=== PATIENT | female | born 2000 | race Caucasian/White ===

== ENCOUNTER 2019-11-15 04:40 | Inpatient (IN) | payer OTHER ==
[2019-11-15] MEDS ORDERED: CITRIC ACID/SODIUM CITRATE 30 ML UNIT-DOSE CUP PO ONE (05:45)
--- NOTE | 2019-11-15 05:49 | HP ---
Past Medical History - Primary Care Physician PCP:: Chas Enamorado - Admission Chief Complaint: 37,5 weeks, previous c/s , rom, request of repeat c/s History Source: Patient Limitations to Obtaining History: Language Barrier - Past Medical History ...: 2 ...Para: 1 ...Term: 1 - Past Surgical History Past Surgical History: Yes: Hx Myomectomy: No Hx Transabdominal Cerclage: No - Smoking History Have you smoked in the past 12 months: No - Alcohol/Substance Use Hx Alcohol Use: No History of Substance Use: reports: None - Social History History of Recent Travel: No Home Medications - Allergies Allergies/Adverse Reactions: Allergies Allergy/AdvReac Type Severity Reaction Status Date / Time shrimp Allergy Verified 11/06/19 06:47 Review of Systems - Review of Systems Constitutional: reports: No Symptoms Eyes: reports: No Symptoms HENT: reports: No Symptoms Neck: reports: No Symptoms Cardiovascular: reports: No Symptoms Respiratory: reports: No Symptoms Gastrointestinal: reports: No Symptoms Genitourinary: reports: No Symptoms Breasts: reports: No Symptoms Reported Musculoskeletal: reports: No Symptoms Integumentary: reports: No Symptoms Neurological: reports: No Symptoms Endocrine: reports: No Symptoms Hematology/Lymphatic: reports: No Symptoms Psychiatric: reports: No Symptoms Physical Exam - Maternity Constitutional: Yes: Well Nourished, No Distress, Calm Eyes: Yes: WNL, Conjunctiva Clear, EOM Intact HENT: Yes: WNL, Atraumatic, Normocephalic Neck: Yes: WNL, Supple, Trachea Midline Cardiovascular: Yes: WNL, Regular Rate and Rhythm Breast(s): Yes: WNL Hemorrhage Risk Assessment - Risk Factors Medium Risk Factors: Yes: Prior , uterine surgery,or multiple laparotomies Risk Score: 1 Risk Level: Medium Risk Problem List - Problems (1) with 37 weeks completed gestation Code(s): Z3A.37 - 37 WEEKS GESTATION OF (2) Previous section complicating Code(s): O34.219 - MATERNAL CARE FOR UNSP TYPE SCAR FROM PREVIOUS DEL (3) PROM (premature rupture of membranes) Code(s): O42.90 - SANIYA ROM, 7TH0 BETW RUPT & ONST LABR, UNSP WEEKS OF GEST Qualifiers: PROM onset of labor timing: onset of labor within 24 hours of rupture PROM gestational age: -third trimester Qualified Code(s): O42.013 - premature rupture of membranes, onset of labor within 24 hours of rupture, third trimester Assessment/Plan requesting repeat c/s, risks associated with repeat c/s vs has discussed with patient
[2019-11-15] MEDS ORDERED: ELECTROLYTE-148 SOLN 1,000 ML IV SCH ×2 (06:00→06:31)
[2019-11-15 06:08] VITALS: BMI 23.9
[2019-11-15 06:18] LABS: BASO % 0.2 % (0-2.0); EOS % 0.4 % (0-4.5); HEMATOCRIT 33.2 % (32.4-45.2); HEMOGLOBIN 10.8 GM/dL (10.7-15.3); LYMPH % 20.7 % (8-40); MCH 28.8 pg (25.7-33.7); MCHC 32.5 g/dl (32.0-36.0); MEAN CELL VOLUME 88.5 fl (80-96); MEAN PLT VOLUME 9.9 fl (7.5-11.1); MONO % 4.6 % (3.8-10.2); NEUT % 74.1 % (42.8-82.8); PLATELET COUNT 267 K/MM3 (134-434); RBC 3.76 M/mm3 (3.60-5.2); RDW 14.4 % (11.6-15.6); WHITE BLOOD COUNT 11.6 K/mm3 (4.0-10.0)
[2019-11-15 06:27] LABS: INR 0.92 (0.83-1.09); PROTHROMBIN TIME (PATIENT) 10.9 SEC (9.7-13.0)
[2019-11-15 06:29] LABS: ACTIVATED PTT 26.9 SECONDS (25.2-36.5)
[2019-11-15 06:40] LABS: ALBUMIN 2.8 g/dl (3.4-5.0); BILIRUBIN,TOTAL 0.2 mg/dL (0.2-1); BLOOD UREA NITROGEN 7.1 mg/dL (7-18); CALCIUM 9.1 mg/dL (8.5-10.1); CREATININE 0.4 mg/dL (0.55-1.3); TOT PROT 6.6 g/dl (6.4-8.2)
[2019-11-15] MEDS ORDERED: morphine SULFATE/PF 0.5 MG/ML (2cc Syringe - QUVA) ONE (06:49)
[2019-11-15] MEDS ORDERED: PROPOFOL 20 ML ONE (07:01)
[2019-11-15] MEDS ORDERED: SUCCINYLCHOLINE CHLORIDE 200 MG/10 ML SYRINGE ONE (07:01)
[2019-11-15] MEDS ORDERED: IBUPROFEN 800 MG/8 ML IJ IVPB PRN (08:15)
[2019-11-15] MEDS ORDERED: OXYTOCIN 20 UNITS in 0.9% NS 20 UNIT/1,000 ML INFUS.BAG IV SCH (08:15)
[2019-11-15] MEDS ORDERED: oxyCODONE HCL 5 MG TABLET PO PRN (08:15)
[2019-11-15] MEDS ORDERED: WITCH HAZEL 50% (TUCKS) 40 PAD/JAR PAD TP PRN (08:15)
[2019-11-15] MEDS ORDERED: diphenhydrAMINE HCL 25 MG CAPSULE (FP) PO PRN (08:15)
[2019-11-15] MEDS ORDERED: BENZOCAINE 20% 57 GM BOTTLE TP PRN (08:15)
[2019-11-15] MEDS ORDERED: METHYLERGONOVINE MALEATE 0.2 MG/1 ML AMP IM PRN (08:15)
[2019-11-15] MEDS ORDERED: BENZOCAINE 28 GM HEMORRHOIDAL OINTMENT RC PRN (08:15)
[2019-11-15] MEDS ORDERED: morphine SULFATE/PF 0.5 MG/ML (2cc Syringe - QUVA) EP ONE (08:16)
[2019-11-15] MEDS ORDERED: ONDANSETRON 4 MG/2 ML VIAL IVPUSH PRN (08:16)
--- NOTE | 2019-11-15 08:20 | OP ---
Operative Note - Note: Operative Date: 11/15/19 Pre-Operative Diagnosis: 37 weeks,rom, labor , previous c/s Operation: repeat LSTC/S Findings: live baby boy, 11/09 ROT, clear fluid Surgeon: Chas Enamorado Information Assistant: Rashard Martinez Anesthesia: Spinal Specimens Removed: placenta Estimated Blood Loss (mls): 500 Drains & Tubes with Location: finch Blood Volume Replaced (mls): 0 Operative Report Dictated: Yes
[2019-11-15] MEDS ORDERED: OXYTOCIN 20 UNITS in 0.9% NS 20 UNIT/1,000 ML INFUS.BAG IV ONE (08:32)
--- NOTE | 2019-11-15 08:48 | OP ---
DATE OF OPERATION: 11/15/2019 PREOPERATIVE DIAGNOSIS: at 37 weeks, ruptured membrane, previous section in labor. POSTOPERATIVE DIAGNOSIS: at 37 weeks, ruptured membrane, previous section in labor. PROCEDURE: Repeat low segment transverse section. SURGEON: Daria Enamorado MD DRAFTER LANDSCAPE: JOSEY Gnozalez ANESTHESIA: Spinal. ESTIMATED BLOOD LOSS: 500 mL FINDING: A live baby boy at ROT position, clear fluid, 9 and 9. OPERATION: Patient was taken to the operating room. Under adequate spinal anesthesia abdomen and perineum were prepped and draped. Pfannenstiel abdominal skin incision was made over previous incision. Old scar was removed. Abdominal wall was cut layer by layer until the peritoneum was exposed and incised. Upon entering the abdominal cavity lower uterine segment was identified and uterovesical fold of peritoneum established. Bladder was pushed down. A low transverse uterine incision was made. This incision was extended laterally with bandage scissors. Amniotic sac was entered. Clear fluid. Head delivered from the right occiput transverse position. Nasopharynx was suctioned. Live baby boy was delivered without any difficulty, 9 and 9. Placenta was delivered manually. Uterine cavity was cleaned of all remaining tissue. Uterine incision was closed in 2 layers, first layer with 0 Biosyn continuous suture, the second layer with 0 Biosyn imbricating the first layer. Bladder flap was closed with 0 Biosyn continuous suture. Both tubes and ovaries were checked and were normal. No active bleeding was seen. All the lap pads, sponge counts, instrument counts were correct. Then peritoneum was closed with 0 Biosyn continuous suture. Muscles were brought together with interrupted suture of 0 Biosyn. Fascia was closed with 0 Biosyn continuous suture, subcutaneous fat interrupted suture of 0 Biosyn and the skin was closed with pilar. Patient tolerated procedure well, left the OR in good condition. DARIA ENAMORADO M.D. [id number]
[2019-11-15] MEDS ORDERED: AMPICILLIN SODIUM 1 GM VIAL ONE (10:03)
[2019-11-15] MEDS ORDERED: ceFAZolin SODIUM 1 GM VIAL ONE (10:04)
[2019-11-15] MEDS: CEFAZOLIN 1 GM/D5W 1 GM/50 ML BAG IVPB SCH ×2 (10:05→17:04)
[2019-11-16] MEDS: SIMETHICONE 80 MG TAB.CHEW (FP) PO PRN ×2 (02:38→20:15)
[2019-11-16] MEDS: IBUPROFEN 600 MG TABLET (FP) PO PRN ×3 (02:38→20:16)
--- NOTE | 2019-11-16 07:50 | PN ---
Post Progress Note - Subjective Subjective: Not yet ambulating, finch is out, lochia decreased, tolerating PO, breast feeding Post Day: 1 Type of Delivery: Repeat C/S Vital Signs: Vital Signs Temperature 99 F 11/16/19 06:00 Pulse Rate 79 11/16/19 06:00 Respiratory Rate 20 11/16/19 06:00 Blood Pressure 125/62 11/16/19 06:00 O2 Sat by Pulse Oximetry (%) 96 11/16/19 06:00 Breast Exam: Yes: Other Uterus: Yes: Fundus Firm Incision: Yes: Dressing dry and intact (removed), Ramya intact Abdomen/GI: Yes: Abdomen soft Lochia, amount: Moderate Extremities: Yes: Calves non-tender Perineum: Yes: Intact Activity: Other - Labs Labs: CBC WBC 11.6 K/mm3 (4.0-10.0) H 11/15/19 05:55 RBC 3.76 M/mm3 (3.60-5.2) 11/15/19 05:55 Hgb 10.8 GM/dL (10.7-15.3) 11/15/19 05:55 Hct 33.2 % (32.4-45.2) 11/15/19 05:55 MCV 88.5 fl (80-96) 11/15/19 05:55 MCH 28.8 pg (25.7-33.7) 11/15/19 05:55 MCHC 32.5 g/dl (32.0-36.0) 11/15/19 05:55 RDW 14.4 % (11.6-15.6) 11/15/19 05:55 Plt Count 267 K/MM3 (134-434) 11/15/19 05:55 MPV 9.9 fl (7.5-11.1) 11/15/19 05:55 Absolute Neuts (auto) 8.6 K/mm3 (1.5-8.0) H 11/15/19 05:55 Neutrophils % 74.1 % (42.8-82.8) 11/15/19 05:55 Lymphocytes % 20.7 % (8-40) 11/15/19 05:55 Monocytes % 4.6 % (3.8-10.2) 11/15/19 05:55 Eosinophils % 0.4 % (0-4.5) 11/15/19 05:55 Basophils % 0.2 % (0-2.0) 11/15/19 05:55 Nucleated RBC % 0 % (0-0) 11/15/19 05:55 Assessment/Plan 19 y/o on POD # 1 S/P RLTCS in stable condition -Encourage ambulation -Continue PP/post-op care
[2019-11-16 08:12] LABS: BASO % 0.3 % (0-2.0); EOS % 0.7 % (0-4.5); HEMOGLOBIN 9.7 GM/dL (10.7-15.3); LYMPH % 16.2 % (8-40); MCH 29.5 pg (25.7-33.7); MCHC 33.3 g/dl (32.0-36.0); MEAN CELL VOLUME 88.4 fl (80-96); MEAN PLT VOLUME 9.9 fl (7.5-11.1); MONO % 5.1 % (3.8-10.2); NEUT % 77.7 % (42.8-82.8); PLATELET COUNT 208 K/MM3 (134-434); RBC 3.28 M/mm3 (3.60-5.2); RDW 14.9 % (11.6-15.6); WHITE BLOOD COUNT 10.6 K/mm3 (4.0-10.0)
[2019-11-16] MEDS ORDERED: BISACODYL 10 MG SUPP.RECT PR PRN (08:15)
--- NOTE | 2019-11-16 08:31 | PN ---
Progress Note (short form) - Note Progress Note: Anesthesiologist post op note POD#1. S/P repeat under spinal anesthesia with duramorph. Pat seen and examined, VSS, Pain well controlled. 2-05/10. Ambulating. No apparent post anesthesia complications.
[2019-11-16] MEDS: ENOXAPARIN NA (PORCINE) 40 MG/0.4 ML DISP.SYRIN SQ SCH (10:01)
[2019-11-16] MEDS: oxyCODONE HCL 5 MG TABLET PO PRN ×2 (12:58→20:15)
[2019-11-17] MEDS: IBUPROFEN 600 MG TABLET (FP) PO PRN ×2 (01:37→09:59)
[2019-11-17] MEDS: SIMETHICONE 80 MG TAB.CHEW (FP) PO PRN (01:38)
--- NOTE | 2019-11-17 08:46 | DS ---
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: Vital Signs Temperature 99 F 11/16/19 22:00 Pulse Rate 82 11/16/19 22:00 Respiratory Rate 18 11/16/19 22:00 Blood Pressure 108/71 11/16/19 22:00 O2 Sat by Pulse Oximetry (%) 96 11/16/19 06:00 Constitutional: Yes: Well Nourished, Mild Distress Eyes: Yes: WNL HENT: Yes: WNL Neck: Yes: WNL Cardiovascular: Yes: WNL Respiratory: Yes: WNL Gastrointestinal: Yes: WNL, Normal Bowel Sounds, Soft, Other (tolerating diet well) Renal/: Yes: WNL, Other (voiding without difficulty) ....Post : Yes: Uterus firm (below umblicus), Uterus non-tender, Moderate lochia rubra Breast(s): Yes: WNL (breast & bottle feeding . breast not engorged) Musculoskeletal: Yes: WNL Extremities: Yes: WNL. No: Calf Tenderness Edema: LLE: Trace, RLE: Trace Wound/Incision: Yes: Clean/Dry, Well Approximated, Ramya Intact, Open to air. 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 requests for discharge today. Discharge Summary Problems reviewed: Yes Reason For Visit: LABOR ADMIT Current Active Problems PROM (premature rupture of membranes) (Acute) with 37 weeks completed gestation (Acute) Previous section complicating (Acute) Condition: Stable - Instructions Diet, Activity, Other Instructions: Discharge Instructions * Out of Bed * * Regular Diet, High Iron diet * Janis Care * Avoid sex for 6 weeks * Rtc 1 week for ramya removal If you experience excessive bleeding or fever over 101 degrees, call doctor, the clinic or go to the Emergency Room. Referrals: ON STAFF,NOT [Primary Care Provider] - Chas Enamorado MD [Staff Physician] - Disposition: HOME - Home Medications Comprehensive Discharge Medication List: Ambulatory Orders Acetaminophen [Tylenol] 500 mg PO QID PRN #30 tablet 11/17/19 Ferrous Sulfate [Feosol] 325 mg PO BID #60 tablet 11/17/19 Ibuprofen [Motrin -] 600 mg PO Q4H PRN #30 tablet 11/17/19 Miscellaneous Medical Supply [Breast Pump, Electronic] 1 each NR ASDIR #1 unit 11/17/19 Vit 28/Iron Fum/Folic [Theranatal Core Nutrition Tab] 1 each PO DAILY #30 tablet 11/17/19
[2019-11-17 09:39] VITALS: BP 111/71; PULSE 80; TEMP 98
[2019-11-17] MEDS: ENOXAPARIN NA (PORCINE) 40 MG/0.4 ML DISP.SYRIN SQ SCH (09:54)
--- NOTE | 2019-11-17 18:00 | PATH ---
Surgical Pathology Report Patient Name: KATHLEEN SHARMA Med. Rec. 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 Specimen(s) Received PLACENTA Clinical History , 37.3 weeks , 2017 Final Diagnosis PLACENTA, SECTION: 524 G THIRD TRIMESTER PLACENTA WITH TRIVASCULAR UMBILICAL CORD AND UNREMARKABLE PLACENTAL MEMBRANES. Electronically Signed Kenisha Jaime M.D. Gross Description The specimen is received fresh labeled placenta and is a 524 gram, 17 x 15 x 2.5 cm. placenta with attached membranes and umbilical cord. The attached membranes are clear, translucent, and insert marginally. The umbilical cord measures 38 cm. in length and averages 1.2 cm. in diameter. The cord inserts eccentrically, 3 cm. to the nearest margin. No true knots or strictures are identified. Cut surface of the umbilical cord reveals 3 vessels. The surface is heard-blue with minimal fibrin deposition and appropriate caliber vessels. The maternal surface is red-brown with focal defects. Sectioning reveals red-brown, spongy parenchyma. No lesions are identified. Oncology Account Specialist sections are submitted in three cassettes as follows: 1- membrane rolls and umbilical cord; 2-3- full thickness sections of placenta. MLSZ/11/16/2019 sanml/11/16/2019
[2019-11-17] MEDS ORDERED: SENNOSIDES/DOCUSATE COMBO (SENNA PLUS) TABLET (UD) PO PRN (22:00)
== END 2019-11-17 14:55 | disposition home or self-care (01) | DRG 540 ==
LOC: JDEL 04:40 → JLDR 04:55 → J3W 10:36
PROVIDERS: ADMIT Obstetrics & Gynecology; ATTEND Obstetrics & Gynecology
PROC: 10D00Z1 Extraction of Products of Conception, Low, Open Approach (ICD-10-PCS; principal; 2019-11-15)
DX: O34.211 Maternal care for low transverse scar from previous cesarean delivery (principal); O42.92 Full-term premature rupture of membranes, unspecified as to length of time between rupture and onset of labor; Z3A.37 37 weeks gestation of pregnancy; Z37.0 Single live birth
CPT/HCPCS: 36415; 80053; 85025; 85610; 85730; 86762; 86780; 86850; 86900; 86901; 87340; 87389; 88307-TC; U0003

== ENCOUNTER 2019-11-29 15:43 | Emergency (ER) | payer OTHER ==
[2019-11-29 16:11] VITALS: BP 120/59; PULSE 68; TEMP 99.3; BMI 23.8
--- NOTE | 2019-11-29 16:26 | PDOC ---
History of Present Illness - General Chief Complaint: Wound Stated Complaint: WOUND CHECK/POST OP Time Seen by Provider: 11/29/19 15:56 History Source: Patient Exam Limitations: No Limitations Past History - Travel History Traveled outside of the country in the last 30 days: No Close contact w/someone who was outside of country & ill: No - Medical History Allergies/Adverse Reactions: Allergies Allergy/AdvReac Type Severity Reaction Status Date / Time shrimp Allergy Verified 11/29/19 16:00 Home Medications: Ambulatory Orders Acetaminophen [Tylenol] 500 mg PO QID PRN #30 tablet 11/17/19 Ferrous Sulfate [Feosol] 325 mg PO BID #60 tablet 11/17/19 Ibuprofen [Motrin -] 600 mg PO Q4H PRN #30 tablet 11/17/19 Miscellaneous Medical Supply [Breast Pump, Electronic] 1 each NR ASDIR #1 unit 11/17/19 Vit 28/Iron Fum/Folic [Theranatal Core Nutrition Tab] 1 each PO DAILY #30 tablet 11/17/19 Asthma: No Cancer: No Cardiac Disorders: No COPD: No Diabetes: No HTN: No Seizures: No Thyroid Disease: No - Reproductive History Is Patient Now?: No - Immunization History Immunization Up to Date: Yes - Psycho-Social/Smoking History Smoking History: Never smoked Have you smoked in the past 12 months: No - Substance Abuse Hx (Audit-C & DAST Scrn) How often the patient has a drink containing alcohol: Never Score: In Men: 4 or > Positive; In Women: 3 or > Positive: 0 Screen Result (Pos requires Nsg. Audit-10AR): Negative In the last yr the pt used illegal drug/Rx for NonMed reason: No Score: Yes response is considered Positive: 0 Screen Result (Positive result requires Nsg. DAST-10): Negative Review of Systems - Review of Systems Able to Perform ROS?: Yes Is the patient limited Ukrainian proficient: No Constitutional: No: Chills, Fever, Weakness Musculoskeletal: No: Muscle Pain, Muscle Weakness Integumentary: Yes: Other (pain at site). No: Bruising, Erythema, Pruritus, Rash All Other Systems: Reviewed and Negative *Physical Exam - Vital Signs Last Vital Signs Temp Pulse Resp BP Pulse Ox 99.3 F 68 20 120/59 L 100 11/29/19 16:00 11/29/19 16:00 11/29/19 16:00 11/29/19 16:00 11/29/19 16:00 - Physical Exam General Appearance: Yes: Nourished, Appropriately Dressed. No: Apparent Distress Integumentary: positive: Normal Color, Dry, Warm, Other (TTP of the l lateral aspect of the cesarian incision. No purulent drainage or fluctance felt). negative: Erythema, Rash, Swelling Neurologic: positive: Fully Oriented, Alert, Normal Mood/Affect, Normal Response, Motor Strength 5/5 Medical Decision Making - Medical Decision Making 11/29/19 16:27 The patient is a 19 y/o F presents to the ER with pain to the L cesarian incision site from 14 day prior. She states she feels a pulling feeling. She states she had her one week follow up with her OB and they put steri-strips on the site. Denies fevers, chills, purulent drainage, redness to the site. Pt having regular bowel movements. A/P: Surgical site check On exam, wound well approximated, not warm or red. Likely residual pain from internal stitches Will have patient f/u with her OB as scheduled for next week Return precautions given. Pt understands dc instructions, all questions were answered and she feels comfortable with plan Discharge - Discharge Information Problems reviewed: Yes Clinical Impression/Diagnosis: Visit for wound check Condition: Stable Disposition: HOME - Follow up/Referral Referrals: ON STAFF,NOT [Primary Care Provider] - - Patient Discharge Instructions Patient Printed Discharge Instructions: DI for Additional Instructions: You were seen for evaluation of your incision It does not look infected at this time The pulling is most likely due to the stitches used to close the site This should get a little better every day Follow up with your MOLD CHIPPER as scheduled Return to the ER if you have fever, purulent drainage from the site, redness or if you have any changes in your symptoms Lo vieron para love evaluacin de la incisin de miranda cesrea No parece infectado en nima momento Lo ms probable es que el tirn se deba a los puntos de sutura utilizados para cerrar el sitio. [place] debera mejorar un poco cada da Freddy un seguimiento con miranda obstetra / gineclogo segn lo programado Regrese a la poornima de emergencias si tiene fiebre, secrecin purulenta del sitio, enrojecimiento o si tiene algn cambio en ryan sntomas Print Language: SPA - Post Discharge Activity
--- OUTSIDE RECORDS SUMMARY | 2019-11-29 18:13 | XMS ---
:2000 Author Organization [facility] Care Team Providers Name Role Phone ED STAFF PHYSICIAN Unavailable Unavailable ED STAFF PHYSICIAN, STAFF Unavailable Unavailable ALCIDES FORREST Unavailable Unavailable Re-disclosure Warning The records that you are about to access may contain information from federally- assisted alcohol or drug abuse programs. If such information is present, then the following federally mandated warning applies: This information has been disclosed to you from records protected by federal confidentiality rules (42 CFR part 2). The federal rules prohibit you from making any further disclosure of this information unless further disclosure is expressly permitted by the written consent of the person to whom it pertains or as otherwise permitted by 42 CFR part 2. A general authorization for the release of medical or other information is NOT sufficient for this purpose. The Federal rules restrict any use of the information to criminally investigate or prosecute any alcohol or drug abuse patient.The records that you are about to access may contain highly sensitive health information, the redisclosure of which is protected by Article 27-F of the [facility] Public Health law. If you continue you may haveaccess to information: Regarding HIV / AIDS; Provided by facilities licensed or operated by the [facility] Office of Mental Health; or Provided by the [facility] Office for People With Developmental Disabilities. If such information is present, then the following [facility] mandated warning applies: This information has been disclosed to you from confidential records which are protected by state law. State law prohibits you from making any further disclosure of this information without the specific written consent of the person to whom it pertains, or as otherwise permitted by law. Any unauthorized further disclosure in violation of state law may result in a fine or skilled nursing sentence or both. A general authorization for the release of medical or other information is NOT sufficient authorization for further disclosure. Encounters Encounter Providers Location Date Indications Data Source(s ) Emergency Attender: ALCIDES Price 04/11/2019 [facility] 01:33:00 PM EST [facility] CAttender: ED STAFF - 04/11/2019 [facility]YSICIANAttender: 06:17:00 PM EST STAFF ED STAFF PHYSICIANAdmitter: ALCIDES MCGRATH CReferrer: STAFF ED STAFF PHYSICIAN Patient discharged. Medications Medication Brand Start Product Dose Route Administrative Pharmacy [facility] Indications Reaction Description Data Name Date Form Instructions Instructions Source(s) 1 complet Dwain t vit ed Vitamin [facility] no.124-iron Medical -folic [place] ( Vitamin) 27 mg iron-800 mcg Tablet, Ordered By: Darwin Gillis s: 1 tablet oral daily Insurance Providers Payer name Policy type Policy ID Covered Covered constitution party's Policy P charlee / Coverage constitution party ID relationship to Dent Inf ormation type dent [employer] FIRST [id number] SP [id number] Q [employer] FIRST [id number] SP [id number] Q MEDICAID [id number] SP [id number] MEDICAID [id number] SP [id number] HEALTH FIRST [id number] SP [id number] Q HEALTH FIRST [id number] SP [id number] HEALTH FIRST [id number] SP [id number] HEALTH FIRST [id number] SP [id number] Q HMO [place] O [id number] [employer] Problems, Conditions, and Diagnoses Code Display Name Description Problem Type Effective Data Sour ce(s) Dates O26.891 Other specified OTH Diagnosis 04/11/2019 [facility] related RELATED 01:33:00 PM Medica l Center conditions, first CONDITIONS, FIRST EST trimester TRIMESTER O00.01 Abdominal ABDOMINAL Diagnosis 04/11/2019 [facility] with WITH 01:33:00 PM Medic al Center intrauterine INTRAUTERINE EST R10.2 Pelvic and PELVIC AND Diagnosis 04/11/2019 [facility] perineal pain PERINEAL PAIN 01:33:00 PM Medical Center EST Results ID Date Data Source [id number] 11/15/2019 06:19:00 AM EDT [facility] Name Value Range Interpretation Description Data Sup porting Code Source(s) Document(s ) SARS [facility] coronavirus 2 RNA This lab was ordered by [facility] and reported by [facility]. ID Date Data Source Urinalysis.[id number] 04/11/2019 03:50:00 PM EST [facility] 0 Name Value Range Interpretation Description Data Sup porting Code Source(s) Document(s ) Color of Urine YELLOW <content [facility] styleCode="Vania Santi d">Color, Medical Urine Center </content>YELL OW <content styleCode="Deandra lics"> (YELLOW )</content> Glucose NEGATIVE <content Saint [Mass/volume] styleCode="Vania Lassiters in Urine by d">Urine Medical Test strip Glucose Center </content>NEGA TIVE MG/DL<content styleCode="Deandra lics"> (NEGATIVE MG/DL)</conten t> UNK CLEAR <content [facility] styleCode="Vania Santi d">Urine Medical Clarity Center </content>ANITRA R <content styleCode="Deandra lics"> (CLEAR )</content> Specific 1.015-1.02 <content [facility] gravity of 5 styleCode="Vania Hancock Urine by Test d">Urine Medical strip Specific [facility] [place] </content>1.02 0 <content styleCode="Deandra lics"> (1.015-1.025 )</content> UNK NEGATIVE <content [facility] styleCode="Vania Santi d">Urine Medical Bilirubin Center </content>NEGA TIVE <content styleCode="Deandra lics"> (NEGATIVE )</content> Ketones NEGATIVE <content [facility] [Mass/volume] styleCode="Vania Lassiters in Urine by d">Urine Medical Test strip Ketone Center </content>NEGA TIVE MG/DL<content styleCode="Deandra lics"> (NEGATIVE MG/DL)</conten t> Hemoglobin NEGATIVE <content [facility] [Presence] in styleCode="Vania Lassiters Urine by Test d">Urine Blood Medical strip </content>TRAC Center E <content styleCode="Deandra lics"> (NEGATIVE )</content> Nitrite NEGATIVE <content [facility] [Presence] in styleCode="Vania Hancock Urine by Test d">Urine Medical strip Nitrite Center </content>NEGA TIVE <content styleCode="Deandra lics"> (NEGATIVE )</content> pH of Urine by 4.5-8.0 <content Saint Test strip styleCode="Vania Santi d">Urine pH Medical </content>7.0 Center <content styleCode="Deandra lics"> (4.5-8.0 )</content> Urobilinogen 0.2-1.0 <content [facility] [Units/volume] styleCode="Vania Lassiters in Urine by d">Urine Medical Test strip Urobilinogen Center </content>0.2 MG/DL<content styleCode="Deandra lics"> (0.2-1.0 MG/DL)</conten t> Protein NEGATIVE <content Saint [Mass/volume] styleCode="Vania Lassiters in Urine by d">Urine Medical Test strip Protein Center </content>NEGA TIVE MG/DL<content styleCode="Deandra lics"> (NEGATIVE MG/DL)</conten t> UNK 0-3 <content [facility] styleCode="Vania Santi d">Urine White Medical Blood Cell Center </content>0-3 HPF<content styleCode="Deandra lics"> (0-3 HPF)</content> Leukocyte NEGATIVE <content Saint esterase styleCode="Vania Hancock [Presence] in d">Urine Medical Urine by Test Leukocyte Center strip </content>NEGA TIVE <content styleCode="Deandra lics"> (NEGATIVE )</content> UNK 0-3 <content Saint styleCode="Vania Santi d">Urine Red Medical Blood Cell Center </content>0-3 HPF<content styleCode="Deandra lics"> (0-3 HPF)</content> ID Date Data Source GFR(Creatinine).[id number] 04/11/2019 03:30:00 PM EST [facility] 0-0500 Name Value Range Interpretation Code Description Data Rola rce(s) Supporting Document(s ) UNK > 60 <content [facility] styleCode="Bold"> Medical Cent er EGFR </content>169 GFR<content styleCode="Italic s"> (> 60 GFR)</content> ID Date Data Source [facility].[id number] 04/11/2019 03:30:00 PM EST [facility] Name Value Range Interpretation Description Data Sup porting Code Source(s) Document(s ) Sodium 137-145 <content [facility] [Moles/volume] styleCode="Vania Santi in Serum or d">Sodium Medical Plasma </content>138 Center MEQ/L<content styleCode="Deandra lics"> (137-145 MEQ/L)</conten t> Potassium 3.5-5.3 <content [facility] [Moles/volume] styleCode="Vania Santi in Serum or d">Potassium Medical Plasma </content>4.0 Center MEQ/L<content styleCode="Deandra lics"> (3.5-5.3 MEQ/L)</conten t> Glucose 74-106 <content Saint [Mass/volume] styleCode="Vania Santi in Serum or d">Glucose Medical Plasma </content>74 Center MG/DL<content styleCode="Deandra lics"> (74-106 MG/DL)</conten t> UNK 7-17 <content Saint styleCode="Vania Santi d">BUN Medical </content>10 Center MG/DL<content styleCode="Deandra lics"> (7-17 MG/DL)</conten t> Creatinine 0.5-1.3 <content Saint [Mass/volume] styleCode="Vania Santi in Serum or d">Creatinine Medical Plasma </content>0.5 Center MG/DL<content styleCode="Deandra lics"> (0.5-1.3 MG/DL)</conten t> Carbon 22-30 <content Saint dioxide, total styleCode="Vania Santi [Moles/volume] d">Carbon Medical in Serum or Dioxide Center Plasma </content>23 MEQ/L<content styleCode="Deandra lics"> (22-30 MEQ/L)</conten t> Chloride 98-107 <content [facility] [Moles/volume] styleCode="Vania Santi in Serum or d">Chloride Medical Plasma </content>105 Center MEQ/L<content styleCode="Deandra lics"> (98-107 MEQ/L)</conten t> Calcium 8.4-10.2 <content [facility] [Mass/volume] styleCode="Vania Santi in Serum or d">Calcium Medical Plasma </content>10.0 Center MG/DL<content styleCode="Deandra lics"> (8.4-10.2 MG/DL)</conten t> UNK > 60 <content Saint styleCode="Vania Santi d">EGFR Medical </content>169 Center GFR<content styleCode="Deandra lics"> (> 60 GFR)</content> ID Date Data Source HematologyRou.[id number] 04/11/2019 03:14:00 PM [facility] 0500 Name Value Range Interpretation Description Data Sup porting Code Source(s) Document(s ) Leukocytes 4.4-11.0 Above high <content Saint [#/volume] in normal styleCode="Bold Santi Blood by ">White Blood Medical Automated count Cell Count Center </content>11.33 KCUMM H<content styleCode="Ital ics"> (4.4-11.0 KCUMM)</content > Erythrocyte mean 80.0-100 <content Saint corpuscular .0 styleCode="Bold Santi volume [Entitic ">Mean Medical volume] by Corpuscular Center Automated count Volume </content>94.4 FL<content styleCode="Ital ics"> (80.0-100.0 FL)</content> Hematocrit 36.0-46. <content [facility] [Volume 0 styleCode="Bold Santi Fraction] of ">Hematocrit Medical Blood by </content>38.9 Center Automated count %<content styleCode="Ital ics"> (36.0-46.0 %)</content> Hemoglobin 12.3-16. <content [facility] [Mass/volume] in 0 styleCode="Bold Santi Blood ">Hemoglobin Medical </content>13.4 Center G/DL<content styleCode="Ital ics"> (12.3-16.0 G/DL)</content> Erythrocytes 4.0-5.1 <content Saint [#/volume] in styleCode="Bold Santi Blood by ">Red Blood Medical Automated count Cell Count Center </content>4.12 MCUMM<content styleCode="Ital ics"> (4.0-5.1 MCUMM)</content > Erythrocyte mean 26.0-34. <content [facility] corpuscular 0 styleCode="Bold Santi hemoglobin ">Mean Medical [Entitic mass] Corposcular Center by Automated Hemoglobin count </content>32.5 PG<content styleCode="Ital ics"> (26.0-34.0 PG)</content> Erythrocyte 11.5-14. <content [facility] distribution 5 styleCode="Bold Santi width [Ratio] by ">Red Cell Medical Automated count Distribution Center Width </content>12.9 %<content styleCode="Ital ics"> (11.5-14.5 %)</content> Platelets 130-400 <content Saint [#/volume] in styleCode="Bold Santi Blood by ">Platelet Medical Automated count Count Center </content>339 KCUMM<content styleCode="Ital ics"> (130-400 KCUMM)</content > Erythrocyte mean 32.0-37. <content [facility] corpuscular 0 styleCode="Bold Santi hemoglobin ">Mean Corpus. Medical concentration Hgb Center [Mass/volume] by Concentration Automated count (MCHC) </content>34.4 G/DL<content styleCode="Ital ics"> (32.0-37.0 G/DL)</content> Platelet mean 8.0-11.0 <content [facility] volume [Entitic styleCode="Bold Santi volume] in Blood ">Mean Platelet Medical by Automated Volume Center count </content>10.3 FL<content styleCode="Ital ics"> (8.0-11.0 FL)</content> UNK 0.0 <content [facility] styleCode="Bold Santi ">Nucleated Red Medical Blood Cell Center Count </content>0.00 KCUMM<content styleCode="Ital ics"> (0.0 KCUMM)</content > UNK 0 <content Saint styleCode="Bold Santi ">Nucleated Red Medical Blood Cell Center </content>0.0 /100<content styleCode="Ital ics"> (0 /100)</content> ID Date Data Source [facility].[id number] 04/11/2019 03:14:00 PM EST [facility] Name Value Range Interpretation Code Description Data Rola rce(s) Supporting Document(s ) UNK <content [facility] styleCode="Bold" Medical Cente r >RH Type </content>POSITI VE (Reference Range: not available)
UNK NEGATIVE <content [facility] styleCode="Bold" Medical Cente r >Antibody Screen </content>NEGATI VE <content styleCode="Itali cs"> (NEGATIVE )</content> UNK <content [facility] styleCode="Bold" Medical Cente r >Blood Type </content>GROUP A (Reference Range: not available)
ID Date Data Source GFR(Creatinine).[id number] 04/11/2019 02:49:00 PM [facility] 0-0500 Name Value Range Interpretation Code Description Data Rola rce(s) Supporting Document(s ) UNK <content [facility] styleCode="Bold"> Medical Cent er EGFR </content>Test not performed. GFR (Reference Range: not available)
ID Date Data Source [facility].[id number] 04/11/2019 02:49:00 PM EST [facility] Name Value Range Interpretation Description Data Sup porting Code Source(s) Document(s ) Sodium <content [facility] [Moles/volume] styleCode="Bold Santi in Serum or ">Sodium Medical Plasma </content>Test Center not performed. MEQ/L (Reference Range: not available)
Carbon <content Saint dioxide, total styleCode="Bold Santi [Moles/volume] ">Carbon Medical in Serum or Dioxide Center Plasma </content>Test not performed. MEQ/L (Reference Range: not available)
UNK <content [facility] styleCode="Bold Santi ">BUN Medical </content>Test Center not performed. MG/DL (Reference Range: not available)
Potassium <content [facility] [Moles/volume] styleCode="Bold Santi in Serum or ">Potassium Medical Plasma </content>Test Center not performed. MEQ/L (Reference Range: not available)
Chloride <content [facility] [Moles/volume] styleCode="Bold Santi in Serum or ">Chloride Medical Plasma </content>Test Center not performed. MEQ/L (Reference Range: not available)
UNK <content [facility] styleCode="Bold Santi ">EGFR Medical </content>Test Center not performed. GFR (Reference Range: not available)
Glucose <content Saint [Mass/volume] styleCode="Bold Santi in Serum or ">Glucose Medical Plasma </content>Test Center not performed. MG/DL (Reference Range: not available)
Creatinine <content [facility] [Mass/volume] styleCode="Bold Santi in Serum or ">Creatinine Medical Plasma </content>Test Center not performed. MG/DL (Reference Range: not available)
Calcium <content [facility] [Mass/volume] styleCode="Bold Santi in Serum or ">Calcium Medical Plasma </content>Test Center not performed. MG/DL (Reference Range: not available)
Procedure Social History Code Duration Value Status Description Data Source(s ) Smoking 04/11/2019 Denies Ever completed Denies Ever Smoked [facility] 02:37:00 PM EST Smoked Medical C enter Smoking 04/11/2019 Denies Ever completed Denies Ever Smoked [facility] 02:00:00 PM EST Smoked Medical C enter Smoking 04/11/2019 Denies Ever completed Denies Ever Smoked [facility] 01:56:00 PM EST Smoked Medical C enter Vital Signs ID Date Data Source UNK Name Value Range Interpretation Code Description Data Source(s) Body temperature 36.310241 36.636529 [facility] Respiratory rate 18 /min 18 /min [facility] Oxygen saturation 98 % 98 % [facility] roldan in Arterial blood [facility] Center by Pulse oximetry Heart rate 88 /min 88 /min [facility] Diastolic blood 56 mm[Hg] 56 mm[Hg] [facility] pressure Medical Center Systolic blood 118 mm[Hg] 118 mm[Hg] [facility] Medical Center Heart rate 89 /min 89 /min [facility] Body weight 67.964536 kg 67.643297 kg [facility] Measured Medical Center Body temperature 36.046313 36.315676 [facility] Respiratory rate 17 /min 17 /min [facility] Oxygen saturation 98 % 98 % [facility] Jeramy quintero in Arterial blood Medical Center by Pulse oximetry Heart rate 17 /min 17 /min [facility] Body height 154.589393 154.849750 cm [facility] Diastolic blood 49 mm[Hg] 49 mm[Hg] [facility] pressure Medical Center Systolic blood 115 mm[Hg] 115 mm[Hg] [facility] Center Body mass index 27.9 kg/m2 27.9 kg/m2 [facility] (BMI) [Ratio] Medical Octavio ter Patient Treatment Plan of Care Planned Activity Planned Date Details Description Data Source (s) vit [facility] no.[id number] Center ( Vitamin) 27 mg iron-800 mcg Tablet, Ordered By: Darin Gillis: 1 tablet oral daily
== END 2019-11-29 16:41 | disposition home or self-care (01) ==
LOC: JER 15:43
DX: Z48.00 Encounter for change or removal of nonsurgical wound dressing (principal)
CPT/HCPCS: 99282-25